=== PATIENT | female | born 1970 | race Caucasian/White ===

== ENCOUNTER 2017-05-30 09:41 | Emergency (ER) | payer OTHER ==
[2017-05-30 09:54] VITALS: BP 123/71
--- NOTE | 2017-05-30 10:25 | UC ---
Throat Pain/Nasal Rober HPI - HPI Summary HPI Summary: Pt c/o URI symptoms X 3 days. reports began with sore throat and now nasal congestion, and cough, generalized malaise, chills and sweats last night - History of Current Complaint Chief Complaint: UCRespiratory Stated Complaint: SORE THROAT HEADACHE Time Seen by Provider: 05/30/17 10:10 Hx Obtained From: Patient Hx Last Menstrual Period: 05/27/17 ?: No Onset/Duration: Sudden Onset, Lasting Days, Worse Since - onset Severity: Mild Cough: Nonproductive Associated Signs & Symptoms: Positive: Dysphagia, Sinus Discomfort - Allergies/Home Medications Allergies/Adverse Reactions: Allergies Allergy/AdvReac Type Severity Reaction Status Date / Time Sulfa Antibiotics Allergy Intermediate Rash And Verified 05/30/17 09:54 Itching Home Medications: Home Medications ALPRAZolam TAB* [Xanax TAB*] 0.5 mg PO TID PRN 05/30/17 [History Confirmed 05/30] PMH/Surg Hx/FS Hx/Imm Hx Previously Healthy: Yes - Surgical History Surgical History: Yes Surgery Procedure, Year, and Place: GALL BLADDER, TUBAL LIGATION - Family History Known Family History: Positive: Cardiac Disease - Social History Occupation: Employed Full-time Lives: With Family Alcohol Use: None Substance Use Type: None Smoking Status (MU): Heavy Every Day Tobacco Smoker Type: Cigarettes Amount Used/How Often: 1/2 PPD Have You Smoked in the Last Year: Yes Household Exposure Type: Cigarettes - Immunization History Most Recent Influenza Vaccination: no Review of Systems Constitutional: Fever, Chills, Fatigue Eyes: Negative ENT: Sore Throat, Sinus Congestion, Sinus Pain/Tenderness Respiratory: Cough Cardiovascular: Negative Gastrointestinal: Negative Genitourinary: Negative Motor: Negative Neurovascular: Negative Musculoskeletal: Myalgia Neurological: Headache Psychological: Negative Is Patient Immunocompromised?: No All Other Systems Reviewed And Are Negative: Yes Physical Exam Triage Information Reviewed: Yes Appearance: Ill-Appearing Vital Signs: Initial Vital Signs Temp 98 F 05/30/17 09:50 Pulse 93 05/30/17 09:50 Resp 16 05/30/17 09:50 BP 123/71 05/30/17 09:50 Pulse Ox 98 05/30/17 09:50 Vital Signs Reviewed: Yes Eye Exam: Normal ENT Exam: Other ENT: Positive: Pharyngeal erythema, Nasal congestion, Hoarse voice, Other - PND Dental Exam: Normal Neck exam: Normal Respiratory Exam: Normal Cardiovascular Exam: Normal Musculoskeletal Exam: Normal Neurological Exam: Normal Psychological Exam: Normal Skin Exam: Normal Throat Pain/Nasal Course/Dx - Differential Dx/Diagnosis Differential Diagnosis/HQI/PQRI: Influenza, Pharyngitis, URI Provider Diagnoses: URI Discharge - Discharge Plan Condition: Stable Disposition: HOME Prescriptions: Pseudoephedrine-Guaifenesin [Mucinex D 60-600 mg] 1 tab PO DAILY #10 tab Patient Education Materials: Upper Respiratory Infection (ED) Referrals: No Primary Care Phys,NOPCP [Medical Doctor] - If Needed
== END 2017-05-30 10:49 | disposition home or self-care (01) ==
LOC: UCCORT 09:41
DX: J06.9 Acute upper respiratory infection, unspecified (principal); Z88.3 Allergy status to other anti-infective agents; F17.210 Nicotine dependence, cigarettes, uncomplicated
CPT/HCPCS: 87651; 99212; G0463

== ENCOUNTER 2017-08-31 11:41 | Emergency (ER) | payer OTHER ==
[2017-08-31 12:20] VITALS: BP 127/84
--- NOTE | 2017-08-31 12:40 | UC ---
Ear Complaint HPI - HPI Summary HPI Summary: Pt here w/ acute on chronic otalgia w/ pressure w/ muffled hearing. [place] taking an antihistamine then and over the years, they seem to be less effective. Today she reports ongoing sinus pressure and congestion but is here for her ear sx primarily. Has a scratchy throat with PND and dry cough w/o chest pain or SOB. Denies fever, chills, ab pain, vomiting, diarrhea. Has had some nausea - possibly from PND. She also admits to smoking - 6 per day and less since not feeling well. She has tried zyrtec D which helped for a couple of days but then ear pressure worsened. She then tried flonase started 5 days ago which seemed to help for a couple of days but ears are worse past 2 days again. She has had a few nose injuries, tonsilitis repeatedly as a child and GERD intermittently. Takes PPI as needed but hasn't recently. - History of Current Complaint Chief Complaint: UCRespiratory Stated Complaint: cough/congestion Time Seen by Provider: 08/31/17 12:22 Hx Obtained From: Patient Hx Last Menstrual Period: [id number] Pain Intensity: 3 - Allergies/Home Medications Allergies/Adverse Reactions: Allergies Allergy/AdvReac Type Severity Reaction Status Date / Time Sulfa (Sulfonamide Allergy Rash And Verified 08/31/17 12:11 Antibiotics) Itching Home Medications: Home Medications Aspirin/Caffeine [Bc Powder Packet] 08/31/17 [History] Cetirizine HCl/Pseudoephedrine [Zyrtec-D Tablet] 08/31/17 [History] D-Methorphan/PE/Acetaminophen [Cold Multi-Symptom Daytim] 1 tab PO 08/31/17 [ History] GuaiFENesin DM* [Robitussin DM*] 10 ml PO Q6H PRN 08/31/17 [History Confirmed ] PMH/Surg Hx/FS Hx/Imm Hx Previously Healthy: Yes GI/ History: Gastroesophageal Reflux - intermittent Psychological History: Anxiety - PRN benzo- doesn't use often - Surgical History Surgical History: Yes Surgery Procedure, Year, and Place: GALL BLADDER, TUBAL LIGATION - Family History Known Family History: Positive: Cardiac Disease - Social History Lives: Alone Alcohol Use: None Substance Use Type: None Smoking Status (MU): Current Every Day Smoker Type: Cigarettes Amount Used/How Often: 1/2 PPD Have You Smoked in the Last Year: Yes Household Exposure Type: Cigarettes - Immunization History Most Recent Influenza Vaccination: no Review of Systems Constitutional: Negative Skin: Negative Eyes: Negative ENT: Sore Throat, Ear Ache, Nasal Discharge, Sinus Congestion, Sinus Pain/ Tenderness Respiratory: Cough Cardiovascular: Negative Gastrointestinal: Negative Genitourinary: Negative Motor: Negative Neurovascular: Negative Musculoskeletal: Negative Neurological: Headache - "sinus RADFORD" Psychological: Negative All Other Systems Reviewed And Are Negative: Yes Physical Exam Triage Information Reviewed: Yes Appearance: No Pain Distress - appears mildly fatigued, Well-Nourished Vital Signs: Initial Vital Signs Temp 98.4 F 08/31/17 12:14 Pulse 90 08/31/17 12:14 Resp 18 08/31/17 12:14 BP 127/84 08/31/17 12:14 Pulse Ox 98 08/31/17 12:14 Vital Signs Reviewed: Yes Eye Exam: Normal Eyes: Positive: Conjunctiva Clear. Negative: Discharge ENT: Positive: Hearing grossly normal, Pharyngeal erythema - cobblestoning - no edema, Nasal congestion, TM dull - clear TM's B/L w/ bubbles present B/L - appear retracted - no erythema, no lesions, no otorrhea - tragus and mastoids NTTP, Uvula midline. Negative: Nasal drainage, Tonsillar swelling, Tonsillar exudate - +1, Trismus, Muffled voice, Hoarse voice, Sinus tenderness Neck exam: Normal Neck: Positive: Supple, Nontender, No Lymphadenopathy Respiratory Exam: Normal Respiratory: Positive: Lungs clear, Normal breath sounds. Negative: Respiratory distress, Crackles, Rhonchi, Stridor, Wheezing Cardiovascular Exam: Normal Cardiovascular: Positive: RRR, No Murmur Abdominal Exam: Normal Abdomen Description: Positive: Nontender, Soft Bowel Sounds: Positive: Present Musculoskeletal Exam: Normal Musculoskeletal: Positive: Strength Intact Neurological Exam: Normal Neurological: Positive: Alert Psychological Exam: Normal Skin Exam: Normal Ear Complaint Course/Dx - Course Course Of Treatment: Pt presents w/ acute on chronic sinus/ear pain/pressure. Her clinical exam is unremarkable for bacterial infection however she appears to have eustachian tube dysfunction and a deviated septum w/ nasal congestion and PND. Flu neg. Advised supportive care and trialing afrin 2 x day for 3 days - if still not relief w/ ear and sinus sx, may start prednisone for 5 days and f /u w/ ENT as she may be a candidate for more interventional services then medicine alone (ie. septoplasty, myringotomy, etc). Reviewed danger s/sx of when to go to ED. Pt agrees w/plan. NOTE: discussed smoking cessation as well and potential for sx improvement w/ quitting. NOTE: if GERD persists, could be contributing to ENT issues. Pt aware. - Differential Dx/Diagnosis Provider Diagnoses: *Eustachian tube dysfunction. *Septal deviation. * Rhinosinusitis. *URI, viral Discharge - Discharge Plan Condition: Stable Disposition: HOME Patient Education Materials: How to Stop Smoking (ED), Rhinosinusitis (ED) Referrals: GREGORY Dunne [Primary Care Provider] - Remington Damon MD [Medical Doctor] - Additional Instructions: Try afrin 2-3 sprays per nostril 1-2 x day for 3-5 days. DO NOT USE BEYOND THIS TIME YOU MAY GET WORSENING OF SWELLING.' You may also try saline nasal washes with throat garlges, Vicks vapor rub, menthol cough drops, humidification and smoking cessation (see education for tips and consult with PCP for help with cessation as needed). If nasal congestion and ear fullness/pressure/muffled hearing persists, start prednisone. This has been sent to your pharmacy. Follow-up with ENT next week. Call today to schedule appointment. *If you develop severe headache, fever, numbness, tingling,weakness, dizziness, syncope, go to ED
== END 2017-08-31 14:08 | disposition home or self-care (01) ==
LOC: UCCORT 11:41
DX: H69.90 Unspecified Eustachian tube disorder, unspecified ear (principal); J34.2 Deviated nasal septum; J32.9 Chronic sinusitis, unspecified; J06.9 Acute upper respiratory infection, unspecified; F17.210 Nicotine dependence, cigarettes, uncomplicated; K21.9 Gastro-esophageal reflux disease without esophagitis; F41.9 Anxiety disorder, unspecified
CPT/HCPCS: 87502; 99212; G0463

== ENCOUNTER 2018-06-29 09:34 | Emergency (ER) | payer OTHER ==
[2018-06-29 10:35] VITALS: BP 120/76
--- NOTE | 2018-06-29 11:21 | UC ---
Throat Pain/Nasal Rober HPI - HPI Summary HPI Summary: Pt c/o sudden onset of ST X 3 days. Pt has known exposure to strep: son diagnosed last week. - History of Current Complaint Chief Complaint: UCGeneralIllness Stated Complaint: SORE THROAT (STREP EXPOSURE) Hx Obtained From: Patient Hx Last Menstrual Period: 06/27/18 ?: No Onset/Duration: Sudden Onset, Lasting Days, Still Present Severity: Moderate Pain Intensity: 4 Cough: None Associated Signs & Symptoms: Positive: Dysphagia - Epiglottits Risk Factors Epiglottis Risk Factors: Sudden Onset - Allergies/Home Medications Allergies/Adverse Reactions: Allergies Allergy/AdvReac Type Severity Reaction Status Date / Time Sulfa (Sulfonamide Allergy Rash And Verified 08/31/17 12:11 Antibiotics) Itching Home Medications: Home Medications Meclizine TAB* [Antivert 12.5 TAB*] 25 mg PO TID PRN 06/29/18 [History Confirmed 06/29/18] PMH/Surg Hx/FS Hx/Imm Hx Previously Healthy: Yes Psychological History: Anxiety - Surgical History Surgical History: Yes Surgery Procedure, Year, and Place: GALL BLADDER, TUBAL LIGATION - Family History Known Family History: Positive: Cardiac Disease - Social History Alcohol Use: None Substance Use Type: None Smoking Status (MU): Light Every Day Tobacco Smoker Type: Cigarettes Amount Used/How Often: 1/3 PPD Length of Time of Smoking/Using Tobacco: Since Age 18 Have You Smoked in the Last Year: Yes Household Exposure Type: Cigarettes - Immunization History Most Recent Influenza Vaccination: no Review of Systems All Other Systems Reviewed And Are Negative: Yes Constitutional: Positive: Fever - subjective, Chills, Fatigue Skin: Positive: Negative Eyes: Positive: Negative ENT: Positive: Sore Throat Respiratory: Positive: Negative Cardiovascular: Positive: Negative Gastrointestinal: Positive: Negative Genitourinary: Positive: Negative Motor: Positive: Negative Neurovascular: Positive: Negative Musculoskeletal: Positive: Negative Neurological: Positive: Headache Psychological: Positive: Negative Is Patient Immunocompromised?: No Physical Exam Triage Information Reviewed: Yes Appearance: Ill-Appearing Vital Signs: Initial Vital Signs Temp 98.6 F 06/29/18 10:30 Pulse 84 06/29/18 10:30 Resp 16 06/29/18 10:30 BP 120/76 06/29/18 10:30 Pulse Ox 100 06/29/18 10:30 Vital Signs Reviewed: Yes Eye Exam: Normal ENT: Positive: Pharyngeal erythema, Hoarse voice, Other - pierced tongue Dental Exam: Normal Neck exam: Normal Respiratory Exam: Normal Cardiovascular Exam: Normal Musculoskeletal Exam: Normal Neurological Exam: Normal Psychological Exam: Normal Skin Exam: Normal Diagnostics - Laboratory Diagnostic Studies Completed/Ordered: rapid strep: positive Throat Pain/Nasal Course/Dx - Differential Dx/Diagnosis Differential Diagnosis/HQI/PQRI: Pharyngitis, Tonsillitis, URI Provider Diagnosis: Strep throat Discharge - Sign-Out/Discharge Documenting (check all that apply): Patient Departure All imaging exams completed and their final reports reviewed: No Studies - Discharge Plan Condition: Stable Disposition: HOME Prescriptions: Fluconazole 150 MG TAB* [Diflucan 150 MG TAB*] 150 mg PO ONCE #2 tablet Penicillin VK 500 MG TAB(NF) [Penicillin VK 500 mg Tab] 1,000 mg PO Q12H #40 tab Patient Education Materials: Strep Throat (ED) Referrals: Beatrice Gonzalez MD [Primary Care Provider] - - Billing Disposition and Condition Condition: STABLE Disposition: Home - Attestation Statements Provider Attestation: I was available for consult. This patient was seen by the DAVID. The patient was not presented to, seen by, or examined by me. EK
== END 2018-06-29 11:50 | disposition home or self-care (01) ==
LOC: UCCORT 09:34
DX: B96.20 Unspecified Escherichia coli [E. coli] as the cause of diseases classified elsewhere (principal); J02.0 Streptococcal pharyngitis; Z88.2 Allergy status to sulfonamides; F17.210 Nicotine dependence, cigarettes, uncomplicated
CPT/HCPCS: 87651; 99212; G0463

== ENCOUNTER 2019-03-20 16:58 | Emergency (ER) | payer OTHER ==
[2019-03-20 17:27] VITALS: BP 158/90
--- NOTE | 2019-03-20 17:46 | UC ---
Shoulder Pain HPI - HPI Summary HPI Summary: 48-year-old female complaining of right shoulder pain. She did her normal activities yesterday however she did do a lot of vacuum cleaning and she awakened with the right shoulder pain. She denies any trauma. Denies any difficulty breathing and no recent illness. - History of Current Complaint Chief Complaint: UCUpperExtremity Stated Complaint: RIGHT SHOULDER CONCERN Time Seen by Provider: 03/20/19 17:16 Hx Obtained From: Patient Hx Last Menstrual Period: 03/16/19 ?: No Onset/Duration: Gradual Onset Severity Initially: Mild Severity Currently: Mild Pain Intensity: 6 Character: Aching Aggravating Factor(s): Movement Alleviating Factor(s): Rest Associated Signs And Symptoms: Positive: Negative - Allergies/Home Medications Allergies/Adverse Reactions: Allergies Allergy/AdvReac Type Severity Reaction Status Date / Time Sulfa (Sulfonamide Allergy Rash And Verified 03/20/19 17:27 Antibiotics) Itching Home Medications: Home Medications Naproxen Sodium [Aleve] 440 mg PO ONCE PRN 03/20/19 [History Confirmed 03/20/19] Opal's Wort 1 tab PO TID 03/20/19 [History Confirmed 03/20/19] Timolol 0.5% OPTH.PHOEBE* [Timoptic 0.5% Opth*] 1 drop BOTH EYES DAILY 03/20/19 [ History Confirmed 03/20/19] Topiramate [Topamax] 25 mg PO BID 03/20/19 [History Confirmed 03/20/19] PMH/Surg Hx/FS Hx/Imm Hx Previously Healthy: Yes - Surgical History Surgical History: Yes Surgery Procedure, Year, and Place: GALL BLADDER, TUBAL LIGATION - Family History Known Family History: Positive: Cardiac Disease - Social History Alcohol Use: None Substance Use Type: None Smoking Status (MU): Heavy Every Day Tobacco Smoker Type: Cigarettes Amount Used/How Often: 1/2 PPD Length of Time of Smoking/Using Tobacco: Since Age 18 Have You Smoked in the Last Year: Yes Household Exposure Type: Cigarettes - Immunization History Most Recent Influenza Vaccination: no Review of Systems All Other Systems Reviewed And Are Negative: Yes Motor: Positive: Negative Neurovascular: Positive: Negative Musculoskeletal: Positive: Negative, Other: - Normal range of motion however complains of pain to the anterior shoulder with movement. Neurological: Positive: Negative Psychological: Positive: Negative Is Patient Immunocompromised?: No Physical Exam Triage Information Reviewed: Yes Appearance: Well-Appearing, No Pain Distress, Well-Nourished Vital Signs: Initial Vital Signs Temp 98.2 F 03/20/19 17:17 Pulse 79 03/20/19 17:17 Resp 16 03/20/19 17:17 BP 158/90 03/20/19 17:17 Pulse Ox 100 03/20/19 17:17 Vital Signs Reviewed: Yes Eyes: Positive: Conjunctiva Clear ENT: Positive: Pharynx normal, TMs normal, Uvula midline Neck: Positive: Supple, Nontender, No Lymphadenopathy Respiratory: Positive: Lungs clear, Normal breath sounds, No respiratory distress, No accessory muscle use Cardiovascular: Positive: RRR, No Murmur, Pulses Normal, Brisk Capillary Refill Musculoskeletal: Positive: Strength Intact, ROM Intact, No Edema, Other: - Full range of motion, negative arm drop, minimal pain on palpation to the anterior right shoulder, no deformity, erythema, bruising or swelling is noted. Neurological: Positive: Alert, Muscle Tone Normal - Good peripheral pulses neuro sensation and capillary refill. Psychological Exam: Normal Skin Exam: Normal Shoulder Course/Dx - Course Course Of Treatment: The patient is comfortable here. I believe this is more of an overuse tendinitis as a result of using her vacuum apron cleaner. She is to apply heat to the sore area, take Motrin every 8 hours and follow-up with your orthopedist in 4 or 5 days if no improvement. She is able to continue work at [employer] and states she can get people to help her in her job so she doesn't do a lot of movements that cause pain. - Differential Dx/Diagnosis Provider Diagnosis: Right shoulder tendonitis Discharge ED - Sign-Out/Discharge Documenting (check all that apply): Patient Departure All imaging exams completed and their final reports reviewed: No Studies - Discharge Plan Condition: Good Disposition: HOME Prescriptions: Ibuprofen TAB* [Motrin TAB* 600 MG] 600 mg PO Q8H PRN #21 tab PRN Reason: Pain - Mild Patient Education Materials: Tendinitis (ED) Referrals: Beatrice Gonzalez MD [Primary Care Provider] - Edi Ramirez MD [Medical Doctor] - Additional Instructions: Apply heat to the sore area, avoid movements that cause pain, take the Motrin every 8 hours with food. Follow-up with the orthopedist in 4 or 5 days if no improvement. - Billing Disposition and Condition Condition: GOOD Disposition: Home
== END 2019-03-20 17:52 | disposition home or self-care (01) ==
LOC: UCCORT 16:58
DX: M75.91 Shoulder lesion, unspecified, right shoulder (principal); Z88.2 Allergy status to sulfonamides; F17.210 Nicotine dependence, cigarettes, uncomplicated
CPT/HCPCS: 99212; G0463

== ENCOUNTER 2019-05-18 13:12 | Emergency (ER) | payer OTHER ==
[2019-05-18 13:44] VITALS: BP 148/105
--- NOTE | 2019-05-18 14:24 | UC ---
Headache HPI - HPI Summary HPI Summary: Pt presents with c/o headache that has worsened over the last few days. Pt has chronic headaches and takes medication daily for management of them. Pt states that she also thinks that she may be getting a sinus infections because she has increased nasal congestion, and sinus pressure (maxillary) over the last "few days". - History Of Current Complaint Chief Complaint: UCHeadache Stated Complaint: NAUSEA,RADFORD Time Seen by Provider: 05/18/19 13:50 Hx Obtained From: Patient Hx Last Menstrual Period: "about the beginning of the month" ?: No Onset/Duration: Gradual Onset, Lasting Days, Still Present, Worse Since - onset Onset Of Symptoms: Gradual, Still Present Initially Headache Was: Moderate Currently Pain Is: Moderate Pain Intensity: 6 Timing: Constant - has hx of chronic radford Character: Dull, Pressure Location of Headache: Diffuse Aggravating Factor(s): Bright Lights Allevating Factor(s): Nothing Associated Signs And Symptoms: Positive: Sinus Pressure - Risk Factors SAH Risk Factors: Smoking Meningitis Risk Factors: Negative SDH Risk Factors: Negative Temporal Arteritis Risk Factors: Female - Allergies/Home Medications Allergies/Adverse Reactions: Allergies Allergy/AdvReac Type Severity Reaction Status Date / Time Sulfa (Sulfonamide Allergy Rash And Verified 05/18/19 13:39 Antibiotics) Itching Home Medications: Home Medications Ibuprofen TAB* [Motrin TAB* 600 MG] 600 mg PO Q6H PRN 05/18/19 [History Confirmed 05/18/19] Topiramate TAB(*) [Topamax 25 MG tab] 50 mg PO BID 05/18/19 [History Confirmed 05/18/19] PMH/Surg Hx/FS Hx/Imm Hx Previously Healthy: Yes - Surgical History Surgical History: Yes Surgery Procedure, Year, and Place: Tubal Ligation, [place]; Cholecystectomy, ~2003, [place] - Family History Known Family History: Positive: Cardiac Disease - Social History Occupation: Employed Full-time Lives: With Family Alcohol Use: None Substance Use Type: None Smoking Status (MU): Heavy Every Day Tobacco Smoker Type: Cigarettes Amount Used/How Often: 1/2 PPD Length of Time of Smoking/Using Tobacco: Since Age 18 Have You Smoked in the Last Year: Yes Household Exposure Type: Cigarettes - Immunization History Most Recent Influenza Vaccination: no Vaccination Up to Date: Yes Review of Systems All Other Systems Reviewed And Are Negative: Yes Constitutional: Positive: Fatigue Skin: Positive: Negative Eyes: Positive: Photophobia ENT: Positive: Sinus Congestion, Sinus Pain/Tenderness Respiratory: Positive: Negative Cardiovascular: Positive: Negative Gastrointestinal: Positive: Negative Genitourinary: Positive: Negative Motor: Positive: Negative Neurovascular: Positive: Negative Musculoskeletal: Positive: Negative Neurological: Positive: Headache Psychological: Positive: Negative Is Patient Immunocompromised?: No Physical Exam Triage Information Reviewed: Yes Appearance: Pain Distress, Other: - fatigued, Vital Signs: Initial Vital Signs Temp 97.7 F 05/18/19 13:36 Pulse 105 05/18/19 13:36 Resp 16 05/18/19 13:36 BP 148/105 05/18/19 13:36 Pulse Ox 98 05/18/19 13:36 Vital Signs Reviewed: Yes Eye Exam: Normal Eyes: Positive: Other: - EOMI, PERRLA ENT: Positive: Nasal congestion, Sinus tenderness Dental Exam: Normal Neck exam: Normal Respiratory Exam: Normal Cardiovascular Exam: Normal Musculoskeletal Exam: Normal Neurological Exam: Normal Psychological Exam: Normal Skin Exam: Normal Headache Course/Dx - Course Course Of Treatment: I offered to order a cat scan and pt denied testing. Pt agreed to follow up immediately with PCP for further testing and evaluation. - Differential Dx/Diagnosis Differential Diagnosis/HQI/PQRI: Migraine, Sinus Headache, Temporal Arteritis, Tension Headache, Other - brain abnormality/tumor Provider Diagnosis: Headache, Sinusitis Discharge ED - Sign-Out/Discharge Documenting (check all that apply): Patient Departure All imaging exams completed and their final reports reviewed: No Studies - Discharge Plan Condition: Stable Disposition: HOME Prescriptions: Azithromycin TAB* [Zithromax TAB (Z-JOHN) 250 mg #6 tabs] 2 tab PO .TODAY, THEN 1 DAILY #1 john Cetirizine* [ZyrTEC 10 MG TAB*] 10 mg PO DAILY #20 tab Fluticasone NASAL SPRAY 50MCG* [Flonase NASAL SPRAY 50MCG*] 2 spray BOTH NARES DAILY #1 btl Patient Education Materials: Rhinosinusitis (ED), Acute Headache (ED) Referrals: Beatrice Gonzalez MD [Primary Care Provider] - If Needed - Billing Disposition and Condition Condition: STABLE Disposition: Home
== END 2019-05-18 14:34 | disposition home or self-care (01) ==
LOC: UCCORT 13:12
DX: R51 Headache (principal); J32.9 Chronic sinusitis, unspecified; R53.83 Other fatigue; H53.149 Visual discomfort, unspecified; G89.29 Other chronic pain; F17.210 Nicotine dependence, cigarettes, uncomplicated; Z88.2 Allergy status to sulfonamides
CPT/HCPCS: 99212; G0463

== ENCOUNTER 2019-06-09 13:47 | Emergency (ER) | payer OTHER ==
[2019-06-09 14:21] VITALS: BP 124/74
--- NOTE | 2019-06-09 14:32 | UC ---
Throat Pain/Nasal Rober HPI - HPI Summary HPI Summary: 49-year-old female with earache, sore throat, head congestion since , approximately 5 days. She is a smoker. - History of Current Complaint Chief Complaint: UCGeneralIllness Stated Complaint: ST/R EAR PAIN Time Seen by Provider: 06/09/19 13:55 Hx Obtained From: Patient Hx Last Menstrual Period: "about the beginning of the month" ?: No Onset/Duration: Gradual Onset Severity: Mild Pain Intensity: 5 Cough: Nonproductive Associated Signs & Symptoms: Positive: Nasal Discharge - Allergies/Home Medications Allergies/Adverse Reactions: Allergies Allergy/AdvReac Type Severity Reaction Status Date / Time Sulfa (Sulfonamide Allergy Rash And Verified 05/18/19 13:39 Antibiotics) Itching PMH/Surg Hx/FS Hx/Imm Hx Previously Healthy: Yes - Surgical History Surgical History: Yes Surgery Procedure, Year, and Place: Tubal Ligation, [place]; Cholecystectomy, ~2003, [place] - Family History Known Family History: Positive: Cardiac Disease - Social History Occupation: Employed Full-time Lives: With Family Alcohol Use: Rare Substance Use Type: None Smoking Status (MU): Heavy Every Day Tobacco Smoker Type: Cigarettes Amount Used/How Often: 1/2 PPD Length of Time of Smoking/Using Tobacco: Since Age 18 Have You Smoked in the Last Year: Yes Household Exposure Type: Cigarettes - Immunization History Most Recent Influenza Vaccination: no Vaccination Up to Date: Yes Review of Systems All Other Systems Reviewed And Are Negative: Yes ENT: Positive: Sore Throat, Ear Ache, Nasal Discharge Is Patient Immunocompromised?: No Physical Exam Triage Information Reviewed: Yes Appearance: Well-Appearing, No Pain Distress, Well-Nourished Vital Signs: Initial Vital Signs Temp 98.3 F 06/09/19 14:19 Pulse 91 06/09/19 14:19 Resp 17 06/09/19 14:19 BP 124/74 06/09/19 14:19 Pulse Ox 99 06/09/19 14:19 Vital Signs Reviewed: Yes Eyes: Positive: Conjunctiva Clear ENT: Positive: Pharynx normal, Nasal congestion, Nasal drainage - Clear nasal coryza., TMs normal, Uvula midline. Negative: Tonsillar swelling, Tonsillar exudate, Trismus, Muffled voice, Hoarse voice, Sinus tenderness Neck: Positive: Supple, Nontender, No Lymphadenopathy Respiratory: Positive: Lungs clear, Normal breath sounds, No respiratory distress, No accessory muscle use Cardiovascular: Positive: RRR, No Murmur, Pulses Normal, Brisk Capillary Refill Abdomen Description: Positive: Nontender, No Organomegaly, Soft. Negative: CVA Tenderness (R), CVA Tenderness (L), Distended, Guarding, Hepatomegaly, Splenomegaly Bowel Sounds: Positive: Present Musculoskeletal Exam: Normal Neurological Exam: Normal Psychological Exam: Normal Skin Exam: Normal Throat Pain/Nasal Course/Dx - Course Course Of Treatment: Rapid strep test: Negative - Differential Dx/Diagnosis Provider Diagnosis: URI (upper respiratory infection), Pharyngitis Discharge ED - Sign-Out/Discharge Documenting (check all that apply): Patient Departure All imaging exams completed and their final reports reviewed: No Studies - Discharge Plan Condition: Fair Disposition: HOME Referrals: Beatrice Gonzalez MD [Primary Care Provider] - - Billing Disposition and Condition Condition: FAIR Disposition: Home
== END 2019-06-09 14:49 | disposition home or self-care (01) ==
LOC: UCCORT 13:47
DX: J06.9 Acute upper respiratory infection, unspecified (principal); J02.9 Acute pharyngitis, unspecified; H92.01 Otalgia, right ear; F17.210 Nicotine dependence, cigarettes, uncomplicated; Z88.2 Allergy status to sulfonamides
CPT/HCPCS: 87651; 99211; G0463

== ENCOUNTER 2019-09-09 17:33 | Emergency (ER) | payer OTHER ==
[2019-09-09 17:54] VITALS: BP 137/76
--- NOTE | 2019-09-09 18:17 | UC ---
Throat Pain/Nasal Rober HPI - HPI Summary HPI Summary: 49yo female presenting with nasal congestion, PND, sinus headaches, and sinus pain/pressure x7 days. Patient states she "tried to wait it out but symptoms are worsening." Also states b/l ears feel clogged. Denies sore throat and cough. Denies fever and chills. Taking otc allergy medication and nasal spray. States she is prone to sinus infections. - History of Current Complaint Chief Complaint: UCGeneralIllness Stated Complaint: SINUS Hx Obtained From: Patient Hx Last Menstrual Period: "about the beginning of the month" Pain Intensity: 2 Pain Scale Used: 0-10 Numeric - Allergies/Home Medications Allergies/Adverse Reactions: Allergies Allergy/AdvReac Type Severity Reaction Status Date / Time Sulfa (Sulfonamide Allergy Rash And Verified 09/09/19 17:53 Antibiotics) Itching Home Medications: Home Medications ALPRAZolam TAB* [Xanax TAB*] 0.25 - 0.5 mg PO TID PRN 05/30/17 [History Confirmed 09/09/19] Meclizine TAB* [Antivert 12.5 TAB*] 25 mg PO TID PRN 06/29/18 [History Confirmed 09/09/19] Opal's Wort 1 tab PO TID 03/20/19 [History Confirmed 09/09/19] Timolol 0.5% OPTH.PHOEBE* [Timoptic 0.5% Opth*] 1 drop BOTH EYES DAILY 03/20/19 [ History Confirmed 09/09/19] Cetirizine* [ZyrTEC 10 MG TAB*] 10 mg PO DAILY #20 tab 05/18/19 [Rx Confirmed ] Fluticasone NASAL SPRAY 50MCG* [Flonase NASAL SPRAY 50MCG*] 2 spray BOTH NARES DAILY #1 btl 05/18/19 [Rx Confirmed 09/09/19] Topiramate TAB(*) [Topamax 25 MG tab] 50 mg PO BID 05/18/19 [History Confirmed 09/09/19] Amoxicillin/Clavulanate TAB* [Augmentin TAB 875*] 875 mg PO BID #10 tab [Rx] Nystatin 15 mg TOPICAL BID PRN 09/09/19 [History Confirmed 09/09/19] PMH/Surg Hx/FS Hx/Imm Hx - Surgical History Surgical History: Yes Surgery Procedure, Year, and Place: Tubal Ligation, 2011, [place]; Cholecystectomy, ~2003, [place] - Family History Known Family History: Positive: Cardiac Disease - Social History Alcohol Use: Rare Substance Use Type: None Smoking Status (MU): Light Every Day Tobacco Smoker Type: Cigarettes Amount Used/How Often: 1/2 PPD Length of Time of Smoking/Using Tobacco: Since Age 18 Have You Smoked in the Last Year: Yes Household Exposure Type: Cigarettes - Immunization History Most Recent Influenza Vaccination: no Vaccination Up to Date: Yes Review of Systems All Other Systems Reviewed And Are Negative: Yes Constitutional: Positive: Negative ENT: Positive: Ear Ache - b/l clogged, Sinus Congestion, Sinus Pain/Tenderness Respiratory: Positive: Negative Cardiovascular: Positive: Negative Gastrointestinal: Positive: Negative Musculoskeletal: Positive: Negative Neurological/Mental Status: Positive: Headache - "sinus headaches" Physical Exam - Summary Physical Exam Summary: Vital Signs Reviewed: Yes A+Ox3, no distress Eyes: Conjunctiva Clear ENT: Hearing grossly normal, right TM clear, left TM with small effusion and no s/s of infection, +PND, +maxillary sinus tenderness, moist, uvula midline, no exudate, no erythema Neck: Positive: Supple Respiratory: Positive: No respiratory distress, No accessory muscle use + CTA throughout no w/r Cardiovascular: RRR nl s1, s2 no m/r Musculoskeletal Exam: DE SOUZA x 4 without difficulty Neurological: Positive: Alert Psychological: Positive: age appropriate behavior Skin: Positive: no rash, no ecchymosis Vital Signs: Initial Vital Signs Temp 98.3 F 09/09/19 17:51 Pulse 92 09/09/19 17:51 Resp 16 09/09/19 17:51 BP 137/76 09/09/19 17:51 Pulse Ox 100 09/09/19 17:51 Throat Pain/Nasal Course/Dx - Course Course Of Treatment: I treated patient with augmentin for bacterial source of sinusitis and instructed to continue with symptomatic treatment. Instructed to follow up with pcp if symptoms persist. Patient voiced understanding and agreed with treatment plan. - Differential Dx/Diagnosis Differential Diagnosis/HQI/PQRI: Sinusitis, URI Provider Diagnosis: Sinusitis Discharge ED - Sign-Out/Discharge Documenting (check all that apply): Patient Departure All imaging exams completed and their final reports reviewed: No Studies - Discharge Plan Condition: Stable Disposition: HOME Prescriptions: Amoxicillin/Clavulanate TAB* [Augmentin TAB 875*] 875 mg PO BID #10 tab Patient Education Materials: Sinusitis (ED) Referrals: Beatrice Gonzalez MD [Primary Care Provider] - If Needed Additional Instructions: Take Augmentin as prescribed. You may also use Flonase and an over the counter decongestant for symptomatic relief. You may continue with ibuprofen as directed for pain relief. Follow up with your primary care provider if symptoms do not resolve. - Billing Disposition and Condition Condition: STABLE Disposition: Home - Attestation Statements Provider Attestation: This patient was not seen by me. I was available for consult. Chart reviewed. MARIELOS
== END 2019-09-09 18:40 | disposition home or self-care (01) ==
LOC: UCCORT 17:33
DX: J32.9 Chronic sinusitis, unspecified (principal); R09.89 Other specified symptoms and signs involving the circulatory and respiratory systems; H92.03 Otalgia, bilateral; F17.210 Nicotine dependence, cigarettes, uncomplicated; Z88.2 Allergy status to sulfonamides
CPT/HCPCS: 99211; G0463